=== PATIENT | female | born 1965 | race Caucasian/White ===

== ENCOUNTER 2020-04-18 22:11 | Emergency (ER) | payer BC, SELFPAY ==
--- NOTE | ~2020-04-18 | XR_ITS ---
EXAMINATION: XR forearm LT 2V INDICATION: Left forearm pain TECHNIQUE: Two views of the left forearm are obtained. COMPARISON: None available FINDINGS: There is dorsal soft tissue swelling overlying the distal forearm. No acute fracture, dislo cation, or subluxation is identified. Orthopedic hardware is present in the proximal ulna. IMPRESSION: 1. Dorsal soft tissue swelling overlying the distal forearm without underlying osseous abnormality. Reviewed, dictated and finalized at location A.
[2020-04-18 22:12] VITALS: BP 170/98; PULSE 83; RESP 19; TEMP 36.8; O2SAT 100
--- NOTE | 2020-04-18 22:40 | ED.GENADULT ---
HPI - General Adult General Chief complaint: Extremity Injury, Upper Stated complaint: arm injury Time Seen by Provider: 04/18/20 22:34 History of Present Illness HPI narrative: Patient is a 54 y/o female complaining of left arm injury that occurred at approximately 5:00 PM. She states that she was loading a mule and the door swung and struck her left forearm. She denies falling down or any other pain. She describes her left forearm pain as burning and dull. Moving her arm aggravates the pain. Her pain is mild to moderate and radiates to elbow sometimes. Related Data Allergies Allergy/AdvReac Type Severity Reaction Status Date / Time penicillin G Allergy Unknown Unknown Verified 11/04/19 09:04 Penicillins Allergy Unknown Skin Verified 11/04/19 09:04 irritation Review of Systems Constitutional: Constitutional: Denies chills, Denies fever(s), Denies headache(s) and Denies weakness Eyes: Eyes: Denies blurry vision ENT: Denies headache(s) and Denies neck pain Cardiovascular: Cardiovascular: Denies chest pain and Denies dyspnea Respiratory: Respiratory: Denies cough and Denies dyspnea Gastrointestinal: Gastrointestinal: Denies abdominal pain, Denies diarrhea, Denies nausea and Denies vomiting Genitourinary: Genitourinary: Denies hematuria and Denies dysuria Musculoskeletal: Musculoskeletal: Reports as per HPI, Denies back pain, Denies neck pain and Reports other (left forearm pain) Neurologic: Denies headache(s) and Denies weakness PMFSH Past Medical History Medical History Acute knee pain Degenerative joint disease of knee Surgical History Surgical History History of total knee arthroplasty Family History Family History Grandparent Hypertension Mother Hypertension Social History Social History Smoking status: Never smoker Second hand tobacco smoke exposure: No Alcohol intake: current Gender identity (if verbalized by the patient): Female Exam Const: General: no acute distress and well developed Orientation/consciousness: oriented to person, oriented to place, oriented to time and patient oriented x3 HENMT: Head: normocephalic Ears: external ears normal General nose exam: Normal external nose present Eyes: General: appearance normal, both eyes and all related structures Conjunctivae: conjunctivae normal Neck: Neck: normal visual inspection and full ROM Chest: Chest palpation & inspection: normal inspection of the chest and no tenderness Resp: Effort & Inspection: normal respiratory effort Auscultation: clear to auscultation bilaterally Cardio: Rate: regular rate Rhythm: regular rhythm GI: GI Palp: No abdominal tenderness and Yes Soft to palpation Skin: General skin exam: normal color and turgor normal Trauma: abrasion (left forearm abrasion) Neuro: General: oriented to person, oriented to place, oriented to time and patient oriented x3 Cognition (Neuro): normal cognition Extrem: General: normal to inspection, full ROM and no pedal edema Left upper extremity: elbow/forearm tenderness and swelling Psych: Appearance: grossly normal Mental Status: mental status grossly normal Affect: normal affect Course Vital Signs Vital signs: Vital Signs Temperature 36.8 C 04/18/20 22:12 Pulse Rate 83 04/18/20 22:12 Respiratory Rate 19 04/18/20 22:12 Blood Pressure 170/98 H 04/18/20 22:12 Pulse Oximetry 100 04/18/20 22:12 Temperature 36.8 C 04/18/20 22:12 Pulse Rate 79 04/18/20 23:22 Respiratory Rate 16 04/18/20 23:22 Blood Pressure 133/91 H 04/18/20 23:22 Pulse Oximetry 99 04/18/20 23:22 Medical Decision Making Vital Signs Vital Signs: Vital Signs Temperature 36.8 C 04/18/20 22:12 Pulse Rate 83 04/18/20 22:12 Respiratory Rate 19
[2020-04-18] MEDS: TETANUS,DIPHTHERIA,AC PERTUSSIS ADULT (0.5 ML) BOOSTRIX IM (23:08)
[2020-04-18 23:09] VITALS: BP 133/91; PULSE 79; RESP 16; O2SAT 99
[2020-04-18 23:22] VITALS: BP 133/91; PULSE 79; RESP 16; O2SAT 99
== END 2020-04-18 23:16 | disposition home or self-care (01) ==
PROVIDERS: Emergency Provider Emergency Medicine; PCP Family Medicine
DX: S50.12XA Contusion of left forearm, initial encounter (principal); W22.8XXA Striking against or struck by other objects, initial encounter; S50.812A Abrasion of left forearm, initial encounter; Z23 Encounter for immunization; M17.10 Unilateral primary osteoarthritis, unspecified knee
CPT/HCPCS: 73090; 90471; 90715; 99283

== ENCOUNTER 2020-12-31 21:54 | Emergency (ER) | payer BC, SELFPAY ==
--- NOTE | ~2020-12-31 | XR_ITS ---
EXAMINATION: XR tibia fibula RT 2V DATE: 12/31/2020 22:37 INDICATION: Right lower leg injury. TECHNIQUE: 2 views of right tibia and fibula on 4 radiographs were obtained. COMPARISON: None. FINDINGS: Bone alignment is normal. No fracture. There is mild osteoarthritis of medial and lateral c ompartments of the knee and moderate osteoarthritis of patellofemoral compartment. There is severe na viculocuneiform joint osteoarthritis. There is soft tissue swelling anterior to the tibial tubercle. IMPRESSION: 1. Polyarticular osteoarthritis. Reviewed, dictated and finalized at location A.
--- NOTE | ~2020-12-31 | XR_ITS ---
EXAMINATION: XR knee RT 3V DATE: 12/31/2020 22:37 INDICATION: Right knee injury. TECHNIQUE: 3 views of right knee were obtained. COMPARISON: Right knee radiographs 08/16/2019 FINDINGS: Bone alignment is normal. No fracture. There is moderate osteoarthritis of patellofemoral c ompartment and mild osteoarthritis of medial and lateral compartments. No knee joint effusion. IMPRESSION: 1. Moderate right knee osteoarthritis. Reviewed, dictated and finalized at location A.
[2020-12-31 21:58] VITALS: BP 167/94; PULSE 76; RESP 18; TEMP 36.2; O2SAT 100
[2021-01-01 01:04] VITALS: BP 152/93; PULSE 69; RESP 18; O2SAT 100
--- NOTE | 2021-01-01 02:13 | ED.LOWEXIN ---
HPI - Extremity Injury (Lower) General Chief Complaint: Extremity Injury, Lower Stated Complaint: rt lower leg injury Time Seen by Provider: 01/01/21 02:06 Source: patient Mode of arrival: ambulatory Limitations: no limitations History of Present Illness HPI Narrative: Patient is a 55-year-old female complaining of right leg pain, [place], after her horse hit it. Patient denies any other pain or injuries. Severity: moderate Exacerbating factors: palpation Related Data Home Medications Medication Instructions Recorded Confirmed budesonide-formoterol [Symbicort] INHALATION 01/01/21 estradiol mg 01/01/21 omalizumab [Xolair] mg SUBCUT 01/01/21 Allergies Allergy/AdvReac Type Severity Reaction Status Date / Time penicillin G Allergy Unknown Unknown Verified 01/01/21 01:06 Penicillins Allergy Unknown Skin Verified 01/01/21 01:06 irritation Review of Systems Review of Systems: All systems reviewed & are unremarkable except as noted in HPI and below Constitutional: Constitutional: Denies body ache(s), Denies chills, Denies excessive sweating, Denies fatigue, Denies fever(s), Denies headache(s), Denies lethargy, Denies malaise, Denies weakness and Denies weight loss Eyes: Eyes: Denies blurry vision, Denies change in vision and Denies loss of vision ENT: Denies dizziness, Denies ear discharge, Denies headache(s), Denies lip swelling, Denies epistaxis, Denies nasal congestion, Denies neck pain, Denies throat swelling and Denies tongue swelling Cardiovascular: Cardiovascular: Denies chest pain, Denies chest pain at rest, Denies chest pain with activity, Denies diaphoresis, Denies rapid heart rate, Denies edema, Denies irregular heart rhythm, Denies lightheadedness, Denies palpitations, Denies dyspnea and Denies dyspnea on exertion Respiratory: Respiratory: Denies chest congestion, Denies cough, Denies hemoptysis, Denies dyspnea and Denies dyspnea on exertion Gastrointestinal: Gastrointestinal: Denies abdominal pain, Denies melena, Denies hematochezia, Denies diarrhea, Denies nausea, Denies vomiting and Denies hematemesis Musculoskeletal: Musculoskeletal: Denies abnormal gait, Denies deformity, Denies joint swelling, Denies limited range of motion, Denies neck pain and Denies numbness Neurologic: Denies Abnormal speech present, Denies abnormal gait, Denies confusion, Denies dizziness, Denies headache(s), Denies focal weakness, Denies loss of vision, Denies numbness, Denies Other visual disturbances, Denies Sensory deficit (Neuro) and Denies weakness Psychiatric: Psychiatric: Denies confusion, Denies depression, Denies auditory hallucinations, Denies homicidal ideation and Denies suicidal ideation Endocrine: Endocrine: Denies cold intolerance, Denies excessive sweating, Denies fatigue, Denies heat intolerance and Denies palpitations Hematologic/Lymphatic: Hematologic/Lymphatic: Denies easy bleeding and Denies easy bruising Allergic/Immunologic: Allergic/Immunologic: Denies lip swelling, Denies throat swelling and Denies tongue swelling PMFSH Past Medical History Medical History (Updated 01/01/21 @ 03:29 by David Gonzalez MD) Acute knee pain Degenerative joint disease of knee Surgical History Surgical History History of total knee arthroplasty Family History Family History Grandparent Hypertension Mother Hypertension Social History Social History Smoking status: Never smoker Second hand tobacco smoke exposure: No Alcohol intake: current Gender identity (if verbalized by the patient): Female Exam Const: General: cooperative, healthy appearing, comfortable, no acute distress, well developed, alert and awake; No confusion Orientation/consciousness: oriented to person, oriented to place, oriented to time, patient oriented x3 and No conf
[2021-01-01 03:51] VITALS: BP 131/91; PULSE 66; RESP 18; O2SAT 100
== END 2021-01-01 03:50 | disposition home or self-care (01) ==
PROVIDERS: Emergency Provider Emergency Medicine; PCP Family Medicine
DX: S80.11XA Contusion of right lower leg, initial encounter (principal); M17.10 Unilateral primary osteoarthritis, unspecified knee; Z96.659 Presence of unspecified artificial knee joint; W55.12XA Struck by horse, initial encounter
CPT/HCPCS: 73562; 73590; 99283

== ENCOUNTER 2022-10-30 16:29 | Emergency (ER) | payer BC, SELFPAY ==
--- NOTE | 2022-10-30 16:32 | ED.URI ---
HPI - URI/Sore Throat General Stated Complaint: SORE THROAT Time Seen by Provider: 10/30/22 16:40 Source: patient Mode of arrival: ambulatory Limitations: no limitations History of Present Illness HPI Narrative: Erica is a 57-year-old female patient presenting to the clinic today with complaints of a sore throat that began last night. She denies any fever, chills, runny nose, or cough. States that the throat feels dry, sore, and swollen. Denies any known exposure to anyone with COVID, flu, or strep MD elicited complaint: sore throat and nasal congestion Related Data Home Medications Medication Instructions Recorded Confirmed budesonide-formoterol HFA 80 inhalation 01/01/21 04/12/22 mcg-4.5 mcg/actuation aerosol inhaler (Symbicort) estradiol 0.5 mg tablet mg 01/01/21 04/12/22 albuterol sulfate 90 mcg/actuation 2 inh inhalation DIRECTED 10/30/22 10/30/22 aerosol inhaler omalizumab 75 mg/0.5 mL 75 mg subcut DIRECTED 10/30/22 10/30/22 subcutaneous syringe (Xolair) pantoprazole 40 mg tablet,delayed 40 mg PO DAILY 10/30/22 10/30/22 release Allergies Allergy/AdvReac Type Severity Reaction Status Date / Time penicillin G Allergy Unknown Unknown Verified 10/30/22 16:39 Penicillins Allergy Unknown Skin Verified 10/30/22 16:39 irritation Review of Systems Review of Systems: Pertinent positives per HPI. Patient denies any fever, chills, rash, headache, visual changes, dizziness, cough, shortness of breath, chest pain, palpitations, nausea, vomiting, diarrhea, constipation, abdominal pain, or any urinary issues. PMFSH Past Medical History Medical History Acute knee pain BMI 40.0-44.9, adult Degenerative joint disease of knee Knee effusion Right knee DJD Surgical History Surgical History History of total knee arthroplasty Family History Family History Grandparent Hypertension Mother Hypertension Father Embolism Sibling MVC Social History Social History Smoking status: Never smoker Second hand tobacco smoke exposure: No Alcohol intake: current Substance use: never Substance use type: does not use Living arrangements: with family Occupation/Education: occupation Additional occupation/education comments: clerical work Gender identity (if verbalized by the patient): Female Comments At the time of my signature, I reviewed and agree with the nursing past medical, surgical, social, and family history. There is no relevant family history pertinent to the patient complaint. Exam Narrative: General: Well-developed, well nourished, in no apparent distress Head: Normocephalic, atraumatic Eyes: Pupils equally round and reactive to light bilaterally, EOM intact, sclera and conjunctive clear, no discharge, lids normal Ears: TMs intact and clear, ear canals clear, no drainage, grossly hearing normal. Nose: Nares patent, no discharge, no inflammation, no sinus tenderness. Mouth: Oral pharynx without lesions or masses, good dentition, MMM. Oropharynx red Neck: Supple, trachea midline, no enlargement of anterior or posterior cervical nodes, no thyroid masses or goiter palpable. Cardio: Regular rate and rhythm, s1 and s2 normal, no murmur appreciated. Resp: Clear to auscultation bilaterally, no rhonchi, rales, wheezing or rubs Course Course Emergency Course: Portions of this record may have been created with voice recognition software. Level of Care: Express Care Visit Vital Signs Vital signs: Vital signs reviewed MDM - URI/Sore Throat MDM Narrative Medical decision making narrative: At the time of visit patient is resting comfortably on the exam table. Strep screen was obtained and was
[2022-10-30 16:39] VITALS: BP 132/92; PULSE 76; RESP 16; TEMP 36.6; O2SAT 100
== END 2022-10-30 16:54 | disposition home or self-care (01) ==
PROVIDERS: Emergency Provider Nurse Practitioner Family; PCP Family Medicine
DX: J02.9 Acute pharyngitis, unspecified (principal); M17.11 Unilateral primary osteoarthritis, right knee
CPT/HCPCS: 87081; 87880; 99213; G0463

== ENCOUNTER → 2023-10-13 11:13 | Outpatient (CLI) | payer BC, SELFPAY ==
--- NOTE | ~2023-10-13 | DEXA_ITS ---
Bone Density Report Name: DIONISIO WHITE Age: 58 Sex: Female Ethnicity: White Date of : 1965 Indication: postmenopausal; screening for osteoporosis; height loss; history of glucocorticoids; prior fracture; hysterectomy; Referring Provider: Stella, Wendy Study: Bone densitometry was performed. Exam Date: October 13, 2023 Accession number: [id number] Bone Density: Region BMD T-score Z-score Classification AP Spine (L1-L4) 0.834 -1.9 -0.6 Osteopenia Femoral Neck (Left) 0.766 -0.7 0.5 Normal Total Hip (Left) 0.948 0.0 0.9 Normal Femoral Neck (Right) 0.783 -0.6 0.6 Normal Total Hip (Right) 0.890 -0.4 0.4 Normal Total Hip Mean 0.919 -0.2 0.7 Normal World Health Organization criteria for BMD impression classify patients as: Normal (T-score at or above -1.0), Osteopenia (T-score between -1.0 and -2.5), or Osteoporosis (T-score at or below -2.5). 10-year Fracture Risk(1): Major Osteoporotic Fracture 18% Hip Fracture 1.0% Reported Risk Factors: [place] (), Neck BMD=0.766, BMI=25.8, previous fracture, glucocorticoids (1) FRAX(R) Version 3.08. Fracture probability calculated for an untreated patient. Fracture probability may be lower if the patient has received treatment. Clinical Information Provided by Patient: Has had a low trauma fracture Has taken Glucocorticoids Has used the following medications: HRT (i.e. estrogen/hormone therapy), Calcium, prednisone in the past, MTV Has the following medical conditions: Hysterectomy Patient maximum height was 67 Menopause Age: 38 No regular weight bearing exercise Drinks caffeinated beverages Onset of menses at age 13 Number of children 2 Impression: The patient has low bone mass, based on the Total Spine T-score. The patient has an estimated ten-year risk of hip fracture of 1% and an estimated ten-year risk of major fracture of 18%, based on the WHO FRAX algorithm. The patient has risk factors, including: previous fracture, history of glucocorticoid therapy. Discussion: BONE DENSITY IS LOW AT ONE OR MORE SKELETAL SITES. This patient's lowest T-score is low at one or more skeletal sites. It meets the World Health Organization's (WHO) criteria for ?low bone mass? (T-score between -1.0 and -2.5). The patient's 10-year risk of fracture as calculated by FRAX is less than the threshold where pharmacological therapy is recommended by the National Osteoporosis Foundation (NOF). However, all treatment decisions require clinical judgment and consideration of individual patient factors, including patient preferences, comorbidities, previous drug use, risk factors not captured in the FRAX model (e.g., frailty, falls, vitamin D deficiency, increased bone turnover, interval significant decline in bone density) and possible under or overesti
--- NOTE | ~2023-10-13 | MM_ITS ---
EXAMINATION: MM screening [facility] HISTORY: Screening TECHNIQUE: Craniocaudal and mediolateral oblique 3-D tomosynthesis images were obtained and synthetic 2-D images were generated. CAD analysis was submitted and interpreted. COMPARISON: No prior mammogram is available for comparison at this institution. BREAST PARENCHYMAL COMPOSITION: There are scattered areas of fibroglandular density. FINDINGS: There is no evidence of suspicious mass, calcification, or architectural distortion to sugg est malignancy in either breast. There has been no suspicious interval change. IMPRESSION: 1. No mammographic evidence of malignancy. 2. Recommend routine screening mammography in one year. BI-RADS Category 1: Negative Reviewed, dictated and finalized at location A. SURGERY ASSISTANT
== END ==
PROVIDERS: PCP Nurse Practitioner; Visit Provider Nurse Practitioner
DX: Z12.31 Encounter for screening mammogram for malignant neoplasm of breast (principal); Z13.820 Encounter for screening for osteoporosis; Z78.0 Asymptomatic menopausal state; M85.88 Other specified disorders of bone density and structure, other site
CPT/HCPCS: 77063; 77067; 77080